=== PATIENT | male | born 1965 | race Caucasian/White ===

== ENCOUNTER → 2019-03-06 | Outpatient (CLI) | payer OTHER | LOC: FIMAGING 10:12 | PROVIDERS: ATTEND Family Medicine | DX: M54.6 Pain in thoracic spine (principal); S22.080D Wedge compression fracture of T11-T12 vertebra, subsequent encounter for fracture with routine healing; W17.89XD Other fall from one level to another, subsequent encounter; Y93.31 Activity, mountain climbing, rock climbing and wall climbing ==